=== PATIENT | female | born 1985 | race Caucasian/White ===

== ENCOUNTER 2018-06-04 20:49 | Emergency (ER) | payer SELFPAY ==
[2018-06-04] MEDS ORDERED: DEXAMETHASONE 10 MG/ML VIAL ONE (21:22)
[2018-06-04] MEDS ORDERED: KETOROLAC 30 MG/ML INJ ONE (21:23)
[2018-06-04 21:39] LABS: Absolute Lymphocytes (CBC) 3.6 K/uL (0.7-4.9); Absolute Neutrophil 11.5 K/uL (1.8-8.0); Basophils % 0.5 % (0-1.3); Eosinophils % 1.3 % (0-4.4); Hematocrit 43.4 % (36.0-45.0); Lymphocytes % 22.2 % (15.3-44.8); MCH 30.9 pg (27.0-35.0); MCV 90.3 fL (80-100); MPV 8.9 fL (7.6-11.3); Monocytes % 5.9 % (3.3-12.3); RBC Red Blood Cell Count 4.81 M/uL (3.86-4.86)
[2018-06-04 21:58] LABS: Albumin 3.9 g/dL (3.4-5.0); Bilirubin Total 0.3 mg/dL (0.2-1.0); Potassium 3.8 mmol/L (3.5-5.1); Protein, Total 7.8 g/dL (6.4-8.2)
[2018-06-04 22:09] LABS: Urine Blood TRACE (NEG); Urine Glucose NEGATIVE (NEG); Urine Protein TRACE (NEG); Urine Specific Gravity >1.030 (1.005-1.030); Urine pH 6.5 (5.0-7.0)
--- NOTE | 2018-06-04 22:15 | RAD REPORT ---
EXAM DESCRIPTION: CT - Stone Protocol - 06/04/2018 10:01 pm CLINICAL HISTORY: Back pain, flank pain COMPARISON: None. TECHNIQUE: Axial 5 mm thick images were obtained without oral or IV contrast. The [id number] span s the entirety of the system including uppermost abdomen and lung bases. All CT scans are performed using dose optimization technique as appropriate and may include automated exposure control or mA/KV adjustment according to patient size. FINDINGS: No hydronephrosis is present and no obstructing ureteral calculi. No suspicious renal mass es. Isodense masses and pyelonephritis are not excluded on a stone protocol CT scan. No urinary bladd er suspicious finding. Uterus and ovaries show no suspicious findings. Imaged portions of the liver, spleen and pancreas show no suspicious findings on non-contrast imaging . No gallbladder or biliary tree abnormality identified. No significant adrenal finding. No suspicious bowel findings. No appendicitis or acute GI process. No hernia, mass or bulky lymphadenopathy noted. No free air, free fluid or inflammatory stranding. No significant bony abnormality. IMPRESSION: Negative CT stone protocol study. Isodense masses and pyelonephritis are not excluded on stone protocol technique.
--- NOTE | 2018-06-04 22:25 | RAD REPORT ---
EXAM DESCRIPTION: RAD - Chest Single View - 06/04/2018 9:34 pm CLINICAL HISTORY: Chest pain, back pain COMPARISON: None. TECHNIQUE: AP portable chest image was obtained 2131 hours . FINDINGS: Lungs are clear. Heart and vasculature are normal. No measurable pleural effusion and no p neumothorax. No gross bony abnormality seen. No acute aortic findings suspected. IMPRESSION: No acute cardiopulmonary process.
--- NOTE | 2018-06-04 22:38 | ER ---
Nurse's Notes [facility] Name: Cally Dumont Age: 32 yrs Sex: Female : 1985 Arrival Date: 06/04/2018 Time: 20:53 Bed 13 Private MD: Diagnosis: Muscle spasm of back Presentation: 06/04 20:56 Presenting complaint: Patient states: Reports lower back pain that started Sunday but aj got worse today when bending over. Transition of care: patient was not received from another setting of care. Onset of symptoms was June 04, 2018. Risk Assessment: Do you want to hurt yourself or someone else? Patient reports no desire to harm self or others. Initial Sepsis Screen: Does the patient meet any 2 criteria? No. Patient's initial sepsis screen is negative. Does the patient have a suspected source of infection? No. Patient's initial sepsis screen is negative. Care prior to arrival: None. 20:56 Method Of Arrival: Ambulatory 20:56 Acuity: TELLY 4 aj Triage Assessment: 20:57 General: Appears in no apparent distress. uncomfortable, Behavior is calm, cooperative, aj appropriate for age. Pain: Complains of pain in coccyx, left lower back and right lower back. EENT: Reports nasal congestion nasal discharge. Neuro: Level of Consciousness is awake, alert, obeys commands, Oriented to person, place, time, situation, Appropriate for age. Respiratory: Airway is patent Respiratory effort is even, unlabored, Respiratory pattern is regular, symmetrical. Derm: Skin is intact, is healthy with good turgor, Skin is pink, warm \T\ dry. normal. Musculoskeletal: Circulation, motion, and sensation intact. Reports pain in coccyx, left lower back and right lower back. 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 - Social history:: Smoking status: Patient/guardian denies using tobacco. - Ebola Screening: : Patient negative for fever greater than or equal to 101.5 degrees Fahrenheit, and additional compatible Ebola Virus Disease symptoms Patient denies exposure to infectious person Patient denies travel to an Ebola-affected area in the 21 days before illness onset No symptoms or risks identified at this time. Screenin:13 Abuse screen: Denies threats or abuse. Denies injuries from another. Nutritional ao screening: No deficits noted. Tuberculosis screening: No symptoms or risk factors identified. Fall Risk None identified. Assessment: 21:10 General: Appears in no apparent distress. comfortable, Behavior is calm, cooperative, ao appropriate for age. Pain: Complains of pain in right lower back Pain does not radiate. Pain currently is 8 out of 10 on a pain scale. Neuro: Level of Consciousness is awake, alert, obeys commands, Oriented to person, place, time, situation, Appropriate for age Moves all extremities. Full function Speech is normal, Facial symmetry appears normal, Pupils are PERRLA. Cardiovascular: Capillary refill < 3 seconds Patient's skin is warm and dry. Respiratory: Airway is patent Respiratory effort is even, unlabored, Respiratory pattern is regular, symmetrical, Breath sounds are clear bilaterally. GI: Abdomen is round obese, Bowel sounds present X 4 quads. : No signs and/or symptoms were reported regarding the genitourinary system. EENT: No signs and/or symptoms were reported regarding the EENT system. Derm: Skin is intact, Skin is pink, warm \T\ dry. normal, Skin temperature is warm. Musculoskeletal: Circulation, motion, and sensation intact. Range of motion:. 22:37 Reassessment: Patient appears in no apparent distress at this time. Patient and/or ao family updated on plan of care and expected duration. Pain level reassessed. Patient is alert, oriented x 3, equal unlabored respirations, skin warm/dry/pink. 22:50 Reassessment: DC instructions given to patient. Patient agree with the POC and to ao follow up with PCP. Patient has no questions at this time. Vital Signs: 20:57 BP 129 / 84; Pulse 98; Resp 17; Temp 99.4; Pulse Ox 100% on R/A; Weight 99.79 kg; aj Height 5 ft. 5 in. (165.10 cm); 21:30 BP 116 / 80; Pulse 99; Resp 20; Pulse Ox 99% on R/A; ao 22:37 BP 132 / 97; Pulse 97; Resp 18; Pulse Ox 86% ; Pain 0/10; ao 20:57 Body Mass Index 36.61 (99.79 kg, 165.10 cm) ED Course: 20:53 Patient arrived in ED. es 20:57 Triage completed. aj 20:57 Arm band placed on left wrist. Patient placed in an exam room. aj 21:05 Alex Snell, RN is Primary Nurse. ao 21:10 Lonny Reyez MD is Attending Physician. ps1 21:13 Patient has correct armband on for positive identification. Pulse ox on. NIBP on. ao 21:32 X-ray completed. Portable x-ray completed in exam room. Patient tolerated procedure kp1 well. 21:34 CXR XRAY In Process Unspecified. EDMS 21:[address] via wheelchair. selena 21:55 René Hurley PA is PHCP. jr8 22:01 CT Stone Protocol In Process Unspecified. EDMS 22:01 CT completed. Patient tolerated procedure well. Patient moved back from CT. nj 22:50 No provider procedures requiring assistance completed. IV discontinued, intact, ao bleeding controlled, No redness/swelling at site. Pressure dressing applied. Administered Medications: 21:26 Drug: TORadol 30 mg Route: IVP; Site: left antecubital; ao 22:05 Follow up: Response: No adverse reaction ao 21:26 Drug: Decadron - Dexamethasone 10 mg Route: IVP; Site: left antecubital; ao 22:06 Follow up: Response: No adverse reaction ao Outcome: 22:37 Discharge ordered by . jr8 22:50 Discharged to home ambulatory. ao 22:50 Condition: stable 22:50 Discharge instructions given to patient, Instructed on discharge instructions, follow up and referral plans. Demonstrated understanding of instructions, follow-up care, medications, Prescriptions given X 3. 22:52 Patient left the ED. ao Signatures: Dispatcher [employer] Maisha Jordan RN RN aj Salyer, Edna es Roszak, Josh, PA PA jrAlex Kelly RN RN ao Jordan, Nathan nj Poole, Kathy kp1 Lonny Reyez MD MD ps1
--- NOTE | 2018-06-04 22:38 | EDPHYS ---
Physician Documentation [facility] Name: Cally Dumont Age: 32 yrs Sex: Female : 1985 Arrival Date: 06/04/2018 Time: 20:53 Bed 13 Private MD: ED Physician Lonny Reyez HPI: 06/04 21:21 This 32 yrs old Female presents to ER via Ambulatory with complaints of ps1 Cough, Back Pain. 21:21 patient states that she has right flank pain that started a couple of days ago. Pain ps1 rated as moderate to severe. Pain radiates inwards. She states that she has had a cough and has been treated with azithromycin. No dysuria or fever. . 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 - Social history:: Smoking status: Patient/guardian denies using tobacco. - Ebola Screening: : Patient negative for fever greater than or equal to 101.5 degrees Fahrenheit, and additional compatible Ebola Virus Disease symptoms Patient denies exposure to infectious person Patient denies travel to an Ebola-affected area in the 21 days before illness onset No symptoms or risks identified at this time. ROS: 21:21 Constitutional: Negative for fever, chills, and weight loss, Eyes: Negative for injury, ps1 pain, redness, and discharge, Cardiovascular: Negative for chest pain, palpitations, and edema, Respiratory: Negative for shortness of breath, cough, wheezing, and pleuritic chest pain, Abdomen/GI: Negative for abdominal pain, nausea, vomiting, diarrhea, and constipation, MS/Extremity: Negative for injury and deformity, Skin: Negative for injury, rash, and discoloration, Neuro: Negative for headache, weakness, numbness, tingling, and seizure. 21:21 Back: Positive for flank pain, on the right. Exam: 21:21 Constitutional: This is a well developed, well nourished patient who is awake, alert, ps1 and in no acute distress. Head/Face: Normocephalic, atraumatic. Eyes: Pupils equal round and reactive to light, extra-ocular motions intact. Lids and lashes normal. Conjunctiva and sclera are non-icteric and not injected. Chest/axilla: Normal chest wall appearance and motion. Nontender with no deformity. No lesions are appreciated. Cardiovascular: Regular rate and rhythm. No gallops, murmurs, or rubs. Normal PMI, no JVD. No pulse deficits. Respiratory: Lungs have equal breath sounds bilaterally, clear to auscultation and percussion. No rales, rhonchi or wheezes noted. No increased work of breathing, no retractions or nasal flaring. Abdomen/GI: Soft, non-tender, with normal bowel sounds. No distension or tympany. No guarding or rebound. No evidence of tenderness throughout. Skin: Warm, dry with normal turgor. Normal color with no rashes, no lesions, and no evidence of cellulitis. MS/ Extremity: Pulses equal, no cyanosis. Neurovascular intact. Full, normal range of motion. Neuro: Awake and alert, GCS 15, oriented to person, place, time, and situation. Cranial nerves II-XII grossly intact. Sensory grossly intact. 21:21 Back: pain, that is moderate, of the right lower back. Vital Signs: 20:57 BP 129 / 84; Pulse 98; Resp 17; Temp 99.4; Pulse Ox 100% on R/A; Weight 99.79 kg; aj Height 5 ft. 5 in. (165.10 cm); 21:30 BP 116 / 80; Pulse 99; Resp 20; Pulse Ox 99% on R/A; ao 22:37 BP 132 / 97; Pulse 97; Resp 18; Pulse Ox 86% ; Pain 0/10; ao 20:57 Body Mass Index 36.61 (99.79 kg, 165.10 cm) aj MDM: 21:30 Patient medically screened. ps1 22:34 Data reviewed: vital signs, nurses notes, lab test result(s), radiologic studies, CT jr8 scan, plain films, and as a result, I will discharge patient. Data interpreted: Pulse oximetry: on room air is 100 %. Interpretation: normal. Counseling: I had a detailed discussion with the patient and/or guardian regarding: the historical points, exam findings, and any diagnostic results supporting the discharge/admit diagnosis, lab results, radiology results, the need for outpatient follow up, a family practitioner, to return to the emergency department if symptoms worsen or persist or if there are any questions or concerns that arise at home. ED course: Pain reproducible upon palpation. More then likely musculoskeletal in nature. No rash identified. No CVA tenderness or flank pain upon palpation. CT and plain film negative. Will try NSAIDs and muscle relaxants . 06/04 21:20 Order name: CBC with Diff [facility] 06/04 21:20 Order name: CMP [facility] 06/04 21:21 Order name: CBC with Automated Diff; Complete Time: 21:52 [facility] 06/04 21:21 Order name: Comprehensive Metabolic Panel; Complete Time: 22:05 [facility] 06/04 21:57 Order name: Urine Dipstick--Ancillary (enter results) [facility] 06/04 21:57 Order name: Urine --Ancillary (enter results) [facility] 06/04 21:20 Order name: CT Stone Protocol; Complete Time: 22:26 [facility] 06/04 21:20 Order name: CXR XRAY; Complete Time: 22:26 [facility] 06/04 21:20 Order name: Urine Dipstick-Ancillary (obtain specimen); Complete Time: 22:05 [facility] 06/04 21:58 Order name: Urine Dipstick-Ancillary; Complete Time: 22:10 [facility] 06/04 21:58 Order name: Urine --Ancillary; Complete Time: 22:10 [facility] 06/04 21:20 Order name: Urine Test (obtain specimen); Complete Time: 22:05 ps1 Administered Medications: 21:26 Drug: TORadol 30 mg Route: IVP; Site: left antecubital; ao 22:05 Follow up: Response: No adverse reaction ao 21:26 Drug: Decadron - Dexamethasone 10 mg Route: IVP; Site: left antecubital; ao 22:06 Follow up: Response: No adverse reaction ao Disposition: 06/04/18 22:37 Discharged to Home. Impression: Muscle spasm of back. - Condition is Stable. - Discharge Instructions: Back Pain, Adult, Muscle Cramps and Spasms, Heat Therapy. - Prescriptions for Ibuprofen 800 mg Oral Tablet - take 1 tablet by ORAL route every 12 hours As needed take with food; 20 tablet. Tylenol- Codeine #3 300-30 mg Oral Tablet - take 2 tablets by ORAL route every 6 hours As needed; 20 tablet. Cyclobenzaprine 10 mg Oral Tablet - take 1 tablet by ORAL route every 8 hours As needed; 30 tablet. - Medication Reconciliation Form, Thank You Letter, Antibiotic Education, Prescription Opioid Use form. - Follow up: Private Physician; When: 1 week; Reason: Recheck today's complaints, Continuance of care, Re-evaluation by your physician. - Problem is new. - Symptoms have improved. Addendum: 06/06/2018 04:20 Co-signature as Attending Physician, Lonny Reyez MD I agree with the assessment and p s1 plan of care. Signatures: Dispatcher [employer] EDMS Maisha Valencia RN RN René Root PA PA jr8 Alex Snell RN RN Lonny Hedrick MD MD ps1 Corrections: (The following items were deleted from the chart) 06/04 22:52 22:37 06/04/2018 22:37 Discharged to Home. Impression: Muscle spasm of back. Condition ao is Stable. Forms are Medication Reconciliation Form, Thank You Letter, Antibiotic Education, Prescription Opioid Use. Follow up: Private Physician; When: 1 week; Reason: Recheck today's complaints, Continuance of care, Re-evaluation by your physician. Problem is new. Symptoms have improved. jr8
[2018-06-04] MEDS ORDERED: HYDROCODONE/APAP 10/325 TAB ONE (22:43)
== END 2018-06-04 22:52 | disposition home or self-care (01) ==
LOC: ER 20:49
DX: M62.830 Muscle spasm of back (principal); Z88.0 Allergy status to penicillin
CPT/HCPCS: 36415; 71045; 74176; 76377; 80053; 81003; 81025; 85025; 96374; 96375; 99284; J1100